=== PATIENT | female | born 1995 | race Hispanic/Latino ===

== ENCOUNTER 2022-01-13 11:05 | Emergency (ER) | payer OTHER ==
[~2022-01-13] VITALS: Ht 157.5 cm; Wt 59.2 kg
[2022-01-13 11:06] VITALS: BP 102/55
[2022-01-13] MEDS ORDERED: PREN1TAB18 PO (11:17)
[2022-01-13 11:58] LABS: BASO % 0.3 % (0.0-1.0); EOS # 0.1 10^3/uL (0.0-0.5); EOS % 1.2 % (0.0-3.0); HEMATOCRIT 34.8 % (36.0-47.0); HEMOGLOBIN 11.4 g/dl (12.0-15.5); LYMPH # 1.9 10^3/uL (1.5-5.0); LYMPH % 21.8 % (24.0-44.0); MEAN CORPUSCULAR HEMOGLOBIN 28.5 pg (27.0-33.0); MEAN CORPUSCULAR HGB CONC 32.8 g/dl (32.0-36.5); MONO # 0.6 10^3/uL (0.0-0.8); MONO % 7.1 % (2.0-8.0); NEUTROPHILS % 69.3 % (36.0-66.0); PLATELET COUNT, AUTOMATED 217 10^3/uL (150-450); WHITE BLOOD COUNT 8.7 10^3/uL (4.0-10.0)
[2022-01-13 12:54] LABS: BLOOD UREA NITROGEN 13 MG/DL (7-18); CALCIUM LEVEL 9.2 MG/DL (8.5-10.1); CARBON DIOXIDE LEVEL 26 MEQ/L (21-32); CHLORIDE LEVEL 104 MEQ/L (98-107); CREATININE FOR GFR 0.76 MG/DL (0.55-1.30); GLOMERULAR FILTRATION RATE > 60.0 (>60); GLUCOSE, FASTING 92 MG/DL (70-100); HCG, SERUM QUANTITATIVE 37289 MIU/ML; SODIUM LEVEL 137 MEQ/L (136-145)
== END 2022-01-13 15:55 | disposition home or self-care (01) ==
LOC: M ED 11:05
DX: O20.8 Other hemorrhage in early pregnancy (principal); Z3A.00 Weeks of gestation of pregnancy not specified

== ENCOUNTER 2022-09-06 00:59 | Inpatient (IN) | payer OTHER ==
[2022-09-06] VITALS (21 sets, daily range): BP systolic 106–133; BP diastolic 55–81
[~2022-09-06] VITALS: Ht 157.5 cm; Wt 79.5 kg
[~2022-09-06 00:59] MED LIST: PREN1TAB18 PO
[2022-09-06] MEDS ORDERED: PENICILLIN G POTASSIUM 5 MU IV 5 MU in D5W MINI-BAG PLUS 100 ML IV STA (02:08)
[2022-09-06] MEDS ORDERED: LACTATED RINGER'S 1000 ML IV STA (02:08)
[2022-09-06] MEDS ORDERED: LIDOCAINE 1% MDV 20ML VIAL INFIL PRN (02:10)
[2022-09-06] MEDS ORDERED: OXYTOCIN INJ 10 UNITS/ML VIAL (J2590) IM PRN (02:10)
[2022-09-06] MEDS ORDERED: METHYLERGONOVINE MALEATE 0.2 MG/ML VIAL (J2210) IM PRN (02:10)
[2022-09-06] MEDS ORDERED: OXYTOCIN DRIP 30 UNITS in IV 1 EA IV SCH ×2 (02:10→16:25)
[2022-09-06] MEDS ORDERED: OXYTOCIN INJ 10 UNITS/ML VIAL (J2590) IV PRN (02:10)
[2022-09-06] MEDS ORDERED: OXYTOCIN DRIP 30 UNITS in IV 1 EA IV PRN ×6 (02:10)
[2022-09-06] MEDS ORDERED: TRANEXAMIC ACID INJection 1,000 MG in NS 100 ML IV PRN (02:10)
[2022-09-06] MEDS ORDERED: CARBOPROST TROMETHAMINE 250 MCG/ML AMP IM PRN (02:10)
[2022-09-06] MEDS ORDERED: LR 1,000 ML IV SCH (02:10)
[2022-09-06] MEDS: LR 1,000 ML IV SCH ×2 (02:40→10:58)
[2022-09-06 02:57] LABS: HEMATOCRIT 36.8 % (36.0-47.0); HEMOGLOBIN 11.7 g/dl (12.0-15.5); MEAN CORPUSCULAR HGB CONC 31.8 g/dl (32.0-36.5); MEAN CORPUSCULAR VOLUME 91.1 fl (80.0-96.0); PLATELET COUNT, AUTOMATED 183 10^3/uL (150-450); RED BLOOD COUNT 4.04 10^6/uL (4.00-5.40); WHITE BLOOD COUNT 11.4 10^3/uL (4.0-10.0)
[2022-09-06] MEDS: PEN G POT 3,000,000 UNIT/50 ML 3,000,000 UNIT in IV 1 EA IV SCH ×3 (06:49→15:00)
[2022-09-06 16:23] LABS: CORD GAS ABE A -1.1; CORD GAS HCO3 A 24.1 MEQ/L; CORD GAS HCO3 V 22.8 MEQ/L; CORD GAS O2 SAT A 47.5 %; CORD GAS O2 SAT V 71.3 %; CORD GAS PCO2 V 35.5 mmHg; CORD GAS PH A 7.376 UNITS; CORD GAS PH V 7.426 UNITS; CORD GAS PO2 A 20.4 mmHg; CORD GAS PO2 V 28.8 mmHg; CORD GAS SBC A 22.2 MEQ/L; CORD GAS TCO2 A 25.4 MEQ/L; CORD GAS TCO2 V 23.9 MEQ/L
[2022-09-06] MEDS ORDERED: ACETAMINOPHEN TAB 650MG DOSE (2X325MG) PO PRN (16:25)
[2022-09-06] MEDS ORDERED: IBUPROFEN 600MG TAB PO PRN (16:25)
[2022-09-06] MEDS ORDERED: DOCUSATE SODIUM 100MG CAPSULE PO PRN (16:25)
[2022-09-06] MEDS ORDERED: METHYLERGONOVINE MALEATE 0.2 MG TAB PO PRN (16:25)
[2022-09-06] MEDS: IBUPROFEN 800 MG TAB PO PRN (16:44)
[2022-09-06] MEDS: DIBUCAINE 1% OINTMENT 30GM TOP PRN (18:47)
[2022-09-07 05:52] VITALS: BP 109/61
[2022-09-07] MEDS: IBUPROFEN 800 MG TAB PO PRN ×2 (08:08→17:09)
[2022-09-07] MEDS: PRENATAL VITAMINS CHEWABLE TABLET PO SCH (08:08)
[2022-09-07] MEDS: ACETAMINOPHEN 500 MG TAB PO PRN ×2 (11:01→21:58)
[2022-09-07] MEDS: DIBUCAINE 1% OINTMENT 30GM TOP PRN (11:46)
[2022-09-07 17:57] VITALS: BP 121/68
[2022-09-08 05:26] VITALS: BP 109/59
[2022-09-08] MEDS ORDERED: ACET1TAB55 PO (08:20)
[2022-09-08] MEDS: PRENATAL VITAMINS CHEWABLE TABLET PO SCH (08:20)
[2022-09-08] MEDS ORDERED: IBUP-1022 PO (08:20)
[2022-09-08] MEDS: ACETAMINOPHEN 500 MG TAB PO PRN (08:23)
[2022-09-08] MEDS: DIBUCAINE 1% OINTMENT 30GM TOP PRN (13:47)
[2022-09-08] MEDS: IBUPROFEN 800 MG TAB PO PRN (13:48)
== END 2022-09-08 19:12 | disposition home or self-care (01) | DRG 807 ==
LOC: M LDO 00:59 → M LDI 01:41 → M PED 18:42
PROVIDERS: ADMIT Obstetrics & Gynecology; ATTEND Advanced Practice Midwife
PROC: 10E0XZZ Delivery of Products of Conception, External Approach (ICD-10-PCS; principal; 2022-09-06)
PROC: 0HQ9XZZ Repair Perineum Skin, External Approach (ICD-10-PCS; 2022-09-06)
DX: O48.0 Post-term pregnancy (principal); Z37.0 Single live birth; O73.1 Retained portions of placenta and membranes, without hemorrhage; O99.824 Streptococcus B carrier state complicating childbirth; Z3A.40 40 weeks gestation of pregnancy; O70.0 First degree perineal laceration during delivery; O69.1XX0 Labor and delivery complicated by cord around neck, with compression, not applicable or unspecified; O43.193 Other malformation of placenta, third trimester